=== PATIENT | male | born 1990 | race American Indian/Alaskan Native ===

== ENCOUNTER 2017-08-21 22:58 | Emergency (ER) | payer BC ==
[2017-08-22 00:10] VITALS: BP 118/75
--- NOTE | 2017-08-22 01:18 | XRay Report ---
FINAL REPORT PROCEDURE: XR FEMUR 2+V LT TECHNIQUE: LEFT femur radiographs, AP and lateral views. HISTORY: fall COMPARISON: No prior studies are available for comparison. FINDINGS: Fracture (s) and/or Dislocation(s): None . Joint space(s): Normal . Soft tissues: Normal . Bone mineralization: Normal . Foreign bodies: None . IMPRESSION: Normal Examination
--- NOTE | 2017-08-22 01:19 | XRay Report ---
FINAL REPORT PROCEDURE: XR KNEE 1-2V LT TECHNIQUE: LEFT knee radiographs, AP and lateral views. CPT 48268 HISTORY: s/p fall COMPARISON: No prior studies are available for comparison. FINDINGS: Fracture (s) and/or Dislocation(s): None . Alignment: Normal . Joint space(s): Normal . Soft tissues: Normal . Bone mineralization: Normal . Foreign bodies: None . IMPRESSION: Normal Examination.
--- NOTE | 2017-08-22 01:22 | XRay Report ---
FINAL REPORT PROCEDURE: XR TIBIA FIBULA 2V LT TECHNIQUE: LEFT tibia and fibula radiographs, AP and lateral views. CPT 36428 HISTORY: fall COMPARISON: No prior studies are available for comparison. FINDINGS: Fracture (s) and/or Dislocation(s): No acute fracture or dislocation. There has been previous internal fixation hardware along the lateral distal left fibula. Small plate identified along the medial distal tibia. No prior studies are available for review.. Joint space(s): Normal . Soft tissues: Normal . Bone mineralization: Normal . IMPRESSION: There is no evidence of an acute fracture or dislocation. Previous internal fixation of the distal fibula is noted..
--- NOTE | 2017-08-22 01:24 | XRay Report ---
FINAL REPORT PROCEDURE: XR FOOT 2V LT TECHNIQUE: LEFT foot radiographs, AP and lateral views. HISTORY: s/p fall swelling COMPARISON: No prior studies are available for comparison. FINDINGS: Fracture (s) and/or Dislocation(s): None . Alignment: Normal. Joint space(s): Normal. Soft tissues: Minimal soft tissue swelling over the midfoot Bone mineralization: Normal. Foreign bodies: None. Calcaneal spurring: None. IMPRESSION: No evidence of an acute fracture. Minimal soft tissue swelling over the midfoot.
[2017-08-22] MEDS ORDERED: NORCO 7.5/325 PO ONE (03:17)
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
== END 2017-08-22 03:42 | disposition home or self-care (01) ==
LOC: ED 22:58
DX: S93.422A Sprain of deltoid ligament of left ankle, initial encounter (principal); S90.32XA Contusion of left foot, initial encounter; S90.122A Contusion of left lesser toe(s) without damage to nail, initial encounter; M79.652 Pain in left thigh; J45.909 Unspecified asthma, uncomplicated; F17.200 Nicotine dependence, unspecified, uncomplicated; F12.10 Cannabis abuse, uncomplicated; Z88.8 Allergy status to other drugs, medicaments and biological substances; Y08.89XA Assault by other specified means, initial encounter; Y93.89 Activity, other specified; Y99.0 Civilian activity done for income or pay; Y92.69 Other specified industrial and construction area as the place of occurrence of the external cause
CPT/HCPCS: 99283